=== PATIENT | male | born 1945 | race Caucasian/White ===

== ENCOUNTER 2017-03-29 11:24 | Inpatient (IN) | payer MEDICARE, OTHER ==
--- NOTE | ~2017-03-29 | DS ---
Discharge Summary [id number] [place]. [address] NAME: KENNETH GLYNN : 41 STATUS : DIS IN PAT#: [id number] AGE: 71 ADM/REG DATE : 03/29/17 MR#: [id number] REPORT SERV DATE: 04/03/17 DICTATED BY: JEREMY RILEY DATE: 04/02/17 REPORT STATUS : Draft TRANSCRIBED BY: MODL DATE: 04/02/17 ADMISSION DATE: 03/29/2017 DISCHARGE DATE: 04/02/2017 PROCEDURES DONE: 1. 03/29/2017 chest x-ray: Patchy bibasilar atelectasis versus early infiltrate, superimposed upon patient's chronic lung disease. 2. 03/30/2017 chest x-ray: Persistent pulmonary venous congestion, possibly due to diastolic dysfunction. 3. 03/31/2017 KUB: No acute intraabdominal process. 4. 03/31/2017 barium swallow study: Possible swallowing apraxia or apprehension slowing the process of bolus propulsion. Delayed, weak pharyngeal contraction. Deep penetration is remitting with chin tuck. No aspiration was witnessed. 5. 04/02/2017 chest x-ray, PA and lateral, partial interpretation: Much improved chest x- ray from previous. No signs of infiltrates appreciated. REASON FOR ADMISSION: Shortness of breath. HISTORY OF HOSPITAL STAY: A 71-year-old white male with past medical history of COPD with active smoking; history of aspiration pneumonia/dysphagia; RACQUEL, noncompliant with CPAP; coronary artery disease status post stent; hypothyroidism; chronic pain secondary to back and neck pain; medical noncompliance, presenting with shortness of breath. The patient was admitted for further evaluation of shortness of breath. The patient was noted to have shortness of breath secondary to COPD exacerbation due to noncompliance with nebulizers and oxygen. In addition, the patient was having [id number]-moepkfy hypoxic respiratory failure secondary to COPD exacerbation. The patient was treated with breathing treatments and IV steroids, which eventually resolved the patient's shortness of breath. Unfortunately, the patient also was being medical noncompliant with his opiate use. Apparently, the patient was using short acting Roxicodone 15 mg p.o. q.6 hours p.r.n. as prescribed, but unfortunately, instead of four times a day, he was taking six times a day. The patient was also found to have his Roxicodone pills in his hand and was noted to be hypotensive and bradycardic. The patient denies taking any of his own medications. Nursing staff had to take his medications and put it in with pharmacy for safe keeping. The patient admitted to taking more than his medications and family was made aware of the incident. The patient also went into opiate withdrawal during the hospital stay. The patient had to take OxyContin extended release 30 mg b.i.d. as a substitute for his Opana which help with the patient's withdrawal. Therefore, the patient is advised to withhold his extended release Opana 15 mg p.o. B12 and switch to Opana extended release 30 mg p.o. b.i.d. in order to correct the opiate withdrawal. In addition, the patient was advised to follow up with his Pain [facility] in order to make the adjustments needed to prevent future opioid withdrawal. The patient acknowledges that medical compliance is required at this point or else the patient will undergo another withdrawal and possibly shortness of breath. DISPOSITION: The patient is feeling fine, no complaints. ACTIVITY: As tolerated. Discharge Summary [address] [address] NAME: KENNETH GLYNN : 41 STATUS : DIS IN PAT#: [id number] AGE: 71 ADM/REG DATE : 03/29/17 MR#: [id number] REPORT SERV DATE: 04/03/17 DICTATED BY: JEREMY RILEY DATE: 04/02/17 REPORT STATUS : Draft TRANSCRIBED BY: KOKO DATE: 04/02/17 DIET: Cardiac. INSTRUCTIONS UPON DISCHARGE: 1. The patient will follow up with pain management to adjust his chronic pain. 2. The patient advised smoking cessation and advised to continue with nicotine patch 21 mg p.o. daily. MEDICATION UPON DISCHARGE: 1. Plavix 75 mg p.o. daily. 2. Zantac 150 mg p.o. b.i.d. 3. Imdur 30 mg p.o. b.i.d. 4. Synthroid 50 mcg p.o. daily. 5. Prinivil 2.5 mg daily. 6. Remeron 15 mg p.o. q.h.s. 7. Paxil 40 mg p.o. daily. 8. Lyrica 75 mg p.o. b.i.d. 9. Flomax 0.4 mg daily. 10.Roxicodone 15 mg p.o. q.6h. 11.Opana extended release 30 mg p.o. b.i.d., dispensed seven days. 12.Diazepam 10 mg p.o. daily p.r.n. 13.Anacin two tablets p.o. q.6h. p.r.n. 14.DuoNeb inhaled nebulizers four times a day p.r.n. 15.Ellipta one puff daily p.r.n. DIAGNOSES UPON DISCHARGE: 1. Shortness of breath secondary to acute exacerbation of chronic obstructive pulmonary disease versus early pneumonia, secondary to tobacco abuse. 2. Acute exacerbation of chronic obstructive pulmonary disease secondary to tobacco abuse. 3. Tobacco abuse. 4. Early pneumonia. 5. Opioid withdrawal secondary to medical noncompliance. 6. Chronic pain. 7. Coronary artery disease. 8. Hypothyroid. 9. Hypertension. LINA/KOKO Jeremy Riley MD / [id number] CC: Discharge Summary [address] [address] NAME: KENNETH GLYNN : 41 STATUS : DIS IN [facility]#: [id number] AGE: 71 ADM/REG DATE : 03/29/17 MR#: [id number] REPORT SERV DATE: 04/03/17 DICTATED BY: JEREMY RILEY DATE: 04/02/17 REPORT STATUS : Draft TRANSCRIBED BY: MODL DATE: 04/02/17 MD William Delgado M.D.
--- NOTE | ~2017-03-29 | HP ---
History And Physical [id number] [place]. [address] NAME: KENNETH GLYNN : 41 STATUS : ADM IN [facility]#: [id number] AGE: 71 ADM/REG DATE : 03/29/17 MR#: [id number] REPORT SERV DATE: 03/29/17 DICTATED BY: JIMY RAMON DATE: 03/29/17 REPORT STATUS : Draft TRANSCRIBED BY: MODFred DATE: 03/29/17 DATE OF ADMISSION: 03/29/2017 CHIEF COMPLAINT: Shortness of breath. HISTORY OF PRESENT ILLNESS: The patient is a 71-year-old white male with a longstanding history of COPD. He has also a history of aspiration pneumonia and dysphagia. He is supposed to be drinking thickened liquids and soft mechanical diet with chopped meats and gravy. He has followed none of those instructions. He is also supposed to be on home O2 at 2 L; however, he also does not wear his home O2. He continues to smoke daily. He does not use his nebulized therapy. He really does not follow any of the instructions that he was actually given at his last hospitalization. He still takes chronic pain medications on a regular basis and last time he was admitted, he actually had what sounds like an acute encephalopathy related to pain medications. He comes in today reporting a couple of weeks of fatigue, cough, shortness of breath. His states he has been mostly lying around in bed. He has continued to take his pain medications. He is sleepy today when I talk with him, but he easily arouses and is conversant. He has quite a rhonchorous cough. He states he hurts all over. PAST MEDICAL HISTORY: Positive for: 1. Severe COPD. Prescribed oxygen, but noncompliant. 2. Aspiration with aspiration pneumonia. 3. RACQUEL, intolerant to CPAP. 4. CAD with history of PTCI. 5. Hypothyroidism. 6. Chronic back pain and chronic neck pain, on chronic opiates. 7. Small-bowel obstruction. 8. Medical noncompliance. 9. Tobacco abuse. 10.History of dysphagia. SOCIAL HISTORY: He continues to smoke one to two packs a day and has for the last 50 years. His is at bedside. He is a nondrinker. FAMILY HISTORY: Negative for any premature coronary disease. ALLERGIES: NO KNOWN DRUG ALLERGIES. PAST SURGICAL HISTORY: He has had exploratory laparotomy with lysis of adhesions x2, an antrectomy, an appendectomy, left total hip arthroplasty, cholecystectomy, and right upper extremity incision and drainage for an abscess. HOME MEDICATIONS: Reviewed and attached. REVIEW OF SYSTEMS: Full 10-point review of systems obtained. Pertinent positives mentioned in the HPI. History And Physical [address] [place]. [address] NAME: KENNETH GLYNN : 41 STATUS : ADM IN [facility]#: [id number] AGE: 71 ADM/REG DATE : 03/29/17 MR#: [id number] REPORT SERV DATE: 03/29/17 DICTATED BY: JIMY RAMON DATE: 03/29/17 REPORT STATUS : Draft TRANSCRIBED BY: KOKO DATE: 03/29/17 PHYSICAL EXAMINATION: GENERAL: Thin, frail-appearing white male. HEENT: Normocephalic and atraumatic. Throat is clear. NECK: Supple. HEART: Regular rate and rhythm. LUNGS: He has diffuse wheezing throughout all lung cole. He also has a very rhonchorous cough with lots of secretions, that he has a very weak cough. ABDOMEN: Soft, nontender, nondistended. EXTREMITIES: Warm and dry. He has no peripheral edema. LABORATORY AND X-RAY DATA: Chemistry panel: Sodium is 135, potassium 4.4, chloride 97, CO2 of 32, BUN and creatinine 14 and 1.06, glucose 135. Troponin is 0.03. Mag is 2.0. Chest x ray shows patchy bibasilar atelectasis versus early infiltrate and chronic lung disease. ABG 7.34/40/86. Lactate is 1.3. White count is 26, H and H 16 and 48, platelets 301. Coags are normal. EKG shows sinus rhythm with a flipped T in lead III, which is new. ASSESSMENT AND PLAN: 1. Severe chronic obstructive pulmonary disease with noncompliance with nebs or oxygen, now with exacerbation and possible pneumonia. We will treat with DuoNeb, steroids and treat underlying possible pneumonia. 2. Hypoxemic respiratory failure, likely secondary to ongoing chronic obstructive pulmonary disease exacerbation plus or minus pneumonia. He is going to be covered with azithromycin and Rocephin. We will add Flagyl for aspiration. We will treat his underlying chronic obstructive pulmonary disease aggressively with Brovana Pulmicort, DuoNeb, steroids, and oxygen. 3. Continued tobacco abuse. Recommend cessation and place him on nicotine patch p.r.n. 4. Coronary artery disease with history of PTCI and no chest pain. Initial troponin is negative. We will recheck two more sets of enzymes. 5. Chronic pain, on chronic opiates. He is a bit sleepy. I do not think opiates are the best idea for this patient who has chronic ongoing hypoxemic respiratory failure and a history of sleep apnea. I would recommend stopping his narcotics and pursuing some alternatives such as nonnarcotic pain medication. He is a bit sleepy today, so I am going to hold his Opana and his oxycodone, although he does not have any evidence of hypercapnia on his gas. 6. Medical noncompliance. This seems to be his biggest shasha. He does not use his nebs. He does not use his oxygen. He continues to smoke. He really is not following any of the instructions he has been given by multiple doctors. He is not following aspiration precautions. He was supposed to have thickened liquids. I suspect his prognosis is fairly poor given his level of compliance and that he will likely succumb to his illness secondary to his continued noncompliance. 7. History of bowel obstruction in the past. 8. Deep venous thrombosis prophylaxis. Subcutaneous Lovenox. 9. Disposition, pending above. History And Physical [address] [address] NAME: KENNETH GLYNN : 41 STATUS : ADM IN [facility]#: [id number] AGE: 71 ADM/REG DATE : 03/29/17 MR#: [id number] REPORT SERV DATE: 03/29/17 DICTATED BY: JIMY RAMON DATE: 03/29/17 REPORT STATUS : Draft TRANSCRIBED BY: KOKO DATE: 03/29/17 TAVO/KOKO Jimy Ramon M.D. / [id number] CC: MD William Delgado M.D.
[2017-03-29 10:57] LABS: BASOPHILS 0.1 %; BASOPHILS ABSOLUTE 0.04 10/3/uL (0.0-0.16); EOSINOPHILS 0 %; IMMATURE GRANULOCYTES 0.3 %; LYMPHOCYTES 6.9 %; LYMPHOCYTES ABSOLUTE 1.85 10/3/uL (0.67-4.30); MEAN CORPUS HGB CONC 32.2 g/dL (32.0-36.0); MEAN CORPUSCULAR HEMOGLOB 29.3 pg (26.0-34.0); MEAN CORPUSCULAR VOLUME 91.2 fL (80-100); MEAN PLATELET VOLUME 9.3 fL (9.2-13.0); MONOCYTES 5.7 %; MONOCYTES ABSOLUTE 1.53 10/3/uL (0.21-1.20); NEUTROPHILS ABSOLUTE 23.28 10/3/uL (2.02-8.40); PLATELET COUNT 301 10/3/uL (150-400); RBC DISTRIBUTION WIDTH 17.1 % (12.0-16.0)
[2017-03-29 10:58] LABS: ER CBC TAT 0 Hrs 05 Mins; HEMATOCRIT 48.5 % (40.0-51.0); HEMOGLOBIN 15.6 g/dL (13.6-17.8); IMMATURE GRANULOCYTES ABSOLUTE 0.09 10/3/uL (0.0-0.11); MANUAL DIFF NO %; RED CELL COUNT 5.32 10/6/uL (4.7-6.1); WHITE BLOOD CELLS 26.8 10/3/uL (4.5-10.5)
[2017-03-29 11:04] LABS: INTERNATIONAL NORMAL RATI 1.1 UNITS (-); PARTIAL THROMBO TIME 31.5 SEC (22.5-37.2); PROTIME (NOT ORD) 14.1 SEC (12.0-14.5)
[2017-03-29 11:12] LABS: BUN (BLOOD UREA NITROGEN) 14 MG/DL (6-23); CALCIUM, SERUM 9.6 MG/DL (8.5-10.4); CHEST PAIN PROFILE TAT 0 Hrs 19 Mins; CHLORIDE, SERUM 97 MMOL/L (96-112); CO2 (CARBON DIOXIDE) 32 MMOL/L (24-34); CREATININE 1.06 MG/DL (0.70-1.30); GFR AFRICAN AMERICAN 80 ML/MIN (>=60); GFR NON AFRICAN AMERICAN 69 ML/MIN (>=60); GLUCOSE, SERUM 135 MG/DL (60-99); POTASSIUM, SERUM 4.4 MMOL/L (3.5-5.3); SODIUM, SERUM 135 MMOL/L (135-148); TROPONIN I 0.03 NG/ML (<0.05)
[~2017-03-29 11:24] MED LIST: *UNABLE1; ACCUNEB INH; ADVAIR250 INH; ALBUTEROL5 INH; ANACIN PO; ASA5GR PO; ASAB PO; ASABAYER PO; ATRONASAL3 NAS; ATROVENTUD INH; BREO ELLIPTA INH; CEFT5 PO; CIP5 PO; CLARIT10 PO; COMBIVENT INH; COMBIVENT RESPIM4 GM INH; CONSTULOSE PO; COREG12 PO; COREG3 PO; COREG6 PO; DOLOPHINE10 MG PO; DSS PO; EX-LAX PO; FLEXI JOIN1 PO; FLOMAX4 PO; FLONASE NAS; GOODY'S EX PO; HABIT21 TOP; HALF81 PO; HCTZ12.5 PO; IMDUR30 PO; INCRUSE ELLIPTA INH; INCRUSE INHALER INH; K-TABS10 MEQ PO; LEVOTHROID50 MCG PO; LEVOTHYROXIN100 MCG PO; LEVOTHYROXIN50 MCG PO; LEVOTHYROXIN88 MCG PO; LORTAB10 PO; LYRICA75 PO; MAG-SR535 MG PO; MEDROLPAK4 PO; MUCINEX600 MG PO; NEXIUM40 PO; NIACIN50T PO; NICODERM C21 MG/241 TOP; OPANA ER20 MG PO; OXYCOD PO; OXYCON20 PO; OXYCONTIN30 MG PO; P20 PO; PAX20 PO; PAXIL40 MG PO; PERCOCET1 TA2 PO; PLAVIX PO; PR25 PO; PRILO PO; PRIN10 PO; PRIN2.5 PO; PROAIR HFA INH; PROVENTSOL INH; REG PO; REM15 PO; ROXICODONE15 MG PO; ROXICODONE30 MG PO; SENNOSIDES PO; SENTAB PO; SEPTRA1 TAB PO; SEROQUEL50 MG PO; SPIRIVA INH; SYN.05 PO; T300 PO; THEO24300 PO; THYROID MED PO; VALIUM10 MG PO; VITAMIN B-225 MG PO; VITAMIN C100 MG PO; VITAMIN D31000 UNIT PO; ZANTAC 150 PO; ZITHROMAX500 MG PO; [UNRECOGNIZED DRUG - OTHER] TOP; [UNRECOGNIZED DRUG - OTHER] TOP
[2017-03-29 11:25] LABS: ANISOCYTOSIS 1+ (5-10/OIF) (0-5/OIF); BAND NEUTROPHILS 4 %; ER DIFF TAT 0 Hrs 32 Mins; LYMPHOCYTES 5 %; LYMPHOCYTES ABSOLUTE (CALC) 1.34 10/3/uL (0.67-4.30); MONOCYTES 7 %; MONOCYTES ABSOLUTE (CALC) 1.88 10/3/uL (0.21-1.20); NEUTROPHILS ABSOLUTE (CALC) 23.58 10/3/uL (2.02-8.40); PLATELET ESTIMATE ADQ (ADEQUATE); SEGMENTED NEUTROPHIL (0) 84 %; TOTAL NUCLEATED CELLS 100
[2017-03-29 11:55] LABS: LACTATE 1.3 MMOL/L (0.3-2.4)
[2017-03-29 12:07] LABS: ALLENS TEST Pos; BE (BASE EXCESS) -4.5 MEQ/L (0 +/- 2.5); CARBOXYHEMOGLOBIN 4.2 % (0-3); DEVICE NC; HCO3 (ACTUAL BICARBONATE) 20.9 MEQ/L (23-27); HEMOBLOGIN CONTENT 14.4 G/DL (14-18); INSTRUMENT SERIAL # 8087; METHEMOGLOBIN 0.3 % (0-3); O2 CONTENT 18.2 VOL% (18-24); PCO2 (CO2 TENSION) 40 MMHG (35-45); PO2 (O2 TENSION) 86 MMHG (79-93); SAMPLE Arterial; pH 7.34 (7.37-7.43)
[2017-03-29 13:17] LABS: PROCALCITONIN 0.32 ng/mL (<0.5)
[2017-03-29] MEDS ORDERED: ROXICODONE15 MG PO (13:34)
[2017-03-29] MEDS ORDERED: LYRICA75 PO (13:34)
[2017-03-29] MEDS ORDERED: FLOMAX4 PO (13:34)
[2017-03-29] MEDS ORDERED: VALIUM10 MG PO (13:35)
[2017-03-29] MEDS ORDERED: OPANA ER15 MG PO (13:35)
[2017-03-29] MEDS ORDERED: REM15 PO (13:36)
[2017-03-29] MEDS ORDERED: ZANTAC 150 PO (13:37)
[2017-03-29] MEDS ORDERED: IMDUR30 PO (13:37)
[2017-03-29] MEDS ORDERED: SYN.05 PO (13:39)
[2017-03-29] MEDS ORDERED: ANACIN PO (13:39)
[2017-03-29] MEDS ORDERED: PRIN2.5 PO (13:40)
[2017-03-29] MEDS ORDERED: PAXIL40 MG PO (13:42)
[2017-03-29] MEDS ORDERED: DUONEB INH (13:42)
[2017-03-29] MEDS ORDERED: PLAVIX PO (13:42)
[2017-03-29] MEDS ORDERED: INCRUSE ELLI62.5 MCG INH (13:43)
[2017-03-29 18:22] LABS: INFLUENZA A SCREEN NEGATIVE (NEGATIVE); INFLUENZA B SCREEN NEGATIVE (NEGATIVE)
[2017-03-29 21:17] LABS: ALLENS TEST Pos; BE (BASE EXCESS) 2.7 MEQ/L (0 +/- 2.5); CARBOXYHEMOGLOBIN 1.4 % (0-3); DEVICE NC; HCO3 (ACTUAL BICARBONATE) 28.7 MEQ/L (23-27); INSTRUMENT SERIAL # 8083; METHEMOGLOBIN 0.3 % (0-3); OPERATOR ID 23712; PCO2 (CO2 TENSION) 50 MMHG (35-45); PO2 (O2 TENSION) 69 MMHG (79-93); SAMPLE Arterial; pH 7.38 (7.37-7.43)
[2017-03-30 01:59] LABS: ALLENS TEST Pos; BE (BASE EXCESS) 1.3 MEQ/L (0 +/- 2.5); CARBOXYHEMOGLOBIN 0.7 % (0-3); HCO3 (ACTUAL BICARBONATE) 26.5 MEQ/L (23-27); HEMOBLOGIN CONTENT 13.6 G/DL (14-18); INSTRUMENT SERIAL # 35151; METHEMOGLOBIN 0.3 % (0-3); O2 CONTENT 18.2 VOL% (18-24); OPERATOR ID 35390; PCO2 (CO2 TENSION) 44 MMHG (35-45); PO2 (O2 TENSION) 85 MMHG (79-93); SAMPLE Arterial
[2017-03-30 03:14] LABS: BASOPHILS 0.1 %; BASOPHILS ABSOLUTE 0.01 10/3/uL (0.0-0.16); EOSINOPHILS 0 %; HEMOGLOBIN 13.2 g/dL (13.6-17.8); IMMATURE GRANULOCYTES 0.3 %; IMMATURE GRANULOCYTES ABSOLUTE 0.05 10/3/uL (0.0-0.11); LYMPHOCYTES 4.3 %; LYMPHOCYTES ABSOLUTE 0.81 10/3/uL (0.67-4.30); MEAN CORPUS HGB CONC 31.2 g/dL (32.0-36.0); MEAN CORPUSCULAR HEMOGLOB 28.1 pg (26.0-34.0); MEAN PLATELET VOLUME 9.8 fL (9.2-13.0); MONOCYTES 2.6 %; MONOCYTES ABSOLUTE 0.49 10/3/uL (0.21-1.20); NEUTROPHILS 92.7 %; NEUTROPHILS ABSOLUTE 17.59 10/3/uL (2.02-8.40); PLATELET COUNT 298 10/3/uL (150-400); RBC DISTRIBUTION WIDTH 17.2 % (12.0-16.0)
[2017-03-30 03:18] LABS: HEMATOCRIT 42.3 % (40.0-51.0); MANUAL DIFF NO %
[2017-03-30 03:30] LABS: CALCIUM, SERUM 8.9 MG/DL (8.5-10.4); CHLORIDE, SERUM 106 MMOL/L (96-112); CO2 (CARBON DIOXIDE) 28 MMOL/L (24-34); CREATININE 0.95 MG/DL (0.70-1.30); GFR AFRICAN AMERICAN 92 ML/MIN (>=60); GFR NON AFRICAN AMERICAN 79 ML/MIN (>=60); GLUCOSE, SERUM 158 MG/DL (60-99); POTASSIUM, SERUM 4.5 MMOL/L (3.5-5.3); TROPONIN I <0.02 NG/ML (<0.05)
[2017-03-30 03:32] LABS: BUN (BLOOD UREA NITROGEN) 21 MG/DL (6-23); SODIUM, SERUM 142 MMOL/L (135-148)
[2017-03-30 04:59] LABS: A/G RATIO 0.5 (0.7-1.9); ALBUMIN 2.3 G/DL (3.5-5.0); ALKALINE PHOSPHATASE 82 U/L (45-117); BUN (BLOOD UREA NITROGEN) 20 MG/DL (6-23); CALCIUM, SERUM 8.8 MG/DL (8.5-10.4); CHLORIDE, SERUM 106 MMOL/L (96-112); CO2 (CARBON DIOXIDE) 26 MMOL/L (24-34); CREATININE 0.76 MG/DL (0.70-1.30); GFR AFRICAN AMERICAN 105 ML/MIN (>=60); GFR NON AFRICAN AMERICAN 91 ML/MIN (>=60); GLOBULIN 4.4 G/DL (2.5-4.1); GLUCOSE, SERUM 158 MG/DL (60-99); POTASSIUM, SERUM 4.5 MMOL/L (3.5-5.3); SGOT(AST) 8 U/L (5-40); SGPT(ALT) 9 U/L (5-65); SODIUM, SERUM 140 MMOL/L (135-148); TOTAL PROTEIN 6.7 G/DL (6.0-8.5)
[2017-03-30 05:01] LABS: PHOSPHORUS, SERUM 1.7 MG/DL (2.5-4.5); TOTAL BILIRUBIN 0.2 MG/DL (0-1.2)
[2017-03-30 05:37] LABS: PROCALCITONIN 0.12 ng/mL (<0.5)
[2017-03-31 05:04] LABS: HEMATOCRIT 43.6 % (40.0-51.0); HEMOGLOBIN 14.3 g/dL (13.6-17.8); MEAN CORPUSCULAR HEMOGLOB 29.1 pg (26.0-34.0); MEAN CORPUSCULAR VOLUME 88.6 fL (80-100); MEAN PLATELET VOLUME 9.4 fL (9.2-13.0); PLATELET COUNT 372 10/3/uL (150-400); RBC DISTRIBUTION WIDTH 17.1 % (12.0-16.0); RED CELL COUNT 4.92 10/6/uL (4.7-6.1)
[2017-03-31 05:09] LABS: MEAN CORPUS HGB CONC 32.8 g/dL (32.0-36.0); WHITE BLOOD CELLS 30.7 10/3/uL (4.5-10.5)
[2017-03-31 05:10] LABS: MANUAL DIFF YES %
[2017-03-31 05:41] LABS: A/G RATIO 0.6 (0.7-1.9); ALBUMIN 2.6 G/DL (3.5-5.0); CALCIUM, SERUM 9.2 MG/DL (8.5-10.4); CHLORIDE, SERUM 106 MMOL/L (96-112); CO2 (CARBON DIOXIDE) 29 MMOL/L (24-34); CREATININE 0.87 MG/DL (0.70-1.30); GFR AFRICAN AMERICAN 99 ML/MIN (>=60); GFR NON AFRICAN AMERICAN 86 ML/MIN (>=60); GLOBULIN 4.6 G/DL (2.5-4.1); GLUCOSE, SERUM 143 MG/DL (60-99); PHOSPHORUS, SERUM 1.7 MG/DL (2.5-4.5); POTASSIUM, SERUM 4.2 MMOL/L (3.5-5.3); SGOT(AST) 6 U/L (5-40); SGPT(ALT) 9 U/L (5-65); SODIUM, SERUM 142 MMOL/L (135-148); TOTAL BILIRUBIN 0.2 MG/DL (0-1.2); TOTAL PROTEIN 7.2 G/DL (6.0-8.5)
[2017-03-31 05:42] LABS: ALKALINE PHOSPHATASE 119 U/L (45-117); BUN (BLOOD UREA NITROGEN) 24 MG/DL (6-23)
[2017-03-31 06:35] LABS: BAND NEUTROPHILS 10 %; LYMPHOCYTES 2 %; LYMPHOCYTES ABSOLUTE (CALC) 0.61 10/3/uL (0.67-4.30); MONOCYTES 4 %; MONOCYTES ABSOLUTE (CALC) 1.23 10/3/uL (0.21-1.20); NEUTROPHILS ABSOLUTE (CALC) 28.86 10/3/uL (2.02-8.40); PLATELET ESTIMATE ADQ (ADEQUATE); RBC MORPHOLOGY NORM (NORMAL); SEGMENTED NEUTROPHIL (0) 84 %; TOTAL NUCLEATED CELLS 100
[2017-04-01 04:31] LABS: HEMATOCRIT 41.2 % (40.0-51.0); HEMOGLOBIN 12.8 g/dL (13.6-17.8); MEAN CORPUSCULAR HEMOGLOB 28.5 pg (26.0-34.0); MEAN PLATELET VOLUME 9.2 fL (9.2-13.0); PLATELET COUNT 360 10/3/uL (150-400); RBC DISTRIBUTION WIDTH 17.5 % (12.0-16.0); RED CELL COUNT 4.49 10/6/uL (4.7-6.1); WHITE BLOOD CELLS 24.4 10/3/uL (4.5-10.5)
[2017-04-01 04:32] LABS: MANUAL DIFF YES %; MEAN CORPUS HGB CONC 31.1 g/dL (32.0-36.0); MEAN CORPUSCULAR VOLUME 91.8 fL (80-100)
[2017-04-01 04:58] LABS: A/G RATIO 0.6 (0.7-1.9); ALBUMIN 2.4 G/DL (3.5-5.0); ALKALINE PHOSPHATASE 94 U/L (45-117); BUN (BLOOD UREA NITROGEN) 21 MG/DL (6-23); CALCIUM, SERUM 8.8 MG/DL (8.5-10.4); CHLORIDE, SERUM 109 MMOL/L (96-112); CO2 (CARBON DIOXIDE) 32 MMOL/L (24-34); CREATININE 0.83 MG/DL (0.70-1.30); GFR AFRICAN AMERICAN 101 ML/MIN (>=60); GFR NON AFRICAN AMERICAN 87 ML/MIN (>=60); GLOBULIN 4.1 G/DL (2.5-4.1); GLUCOSE, SERUM 139 MG/DL (60-99); PHOSPHORUS, SERUM 2.8 MG/DL (2.5-4.5); POTASSIUM, SERUM 4.8 MMOL/L (3.5-5.3); SGOT(AST) 5 U/L (5-40); SGPT(ALT) 8 U/L (5-65); SODIUM, SERUM 145 MMOL/L (135-148); TOTAL BILIRUBIN 0.2 MG/DL (0-1.2); TOTAL PROTEIN 6.5 G/DL (6.0-8.5)
[2017-04-01 05:49] LABS: BAND NEUTROPHILS 3 %; LYMPHOCYTES 3 %; LYMPHOCYTES ABSOLUTE (CALC) 0.73 10/3/uL (0.67-4.30); MONOCYTES 1 %; MONOCYTES ABSOLUTE (CALC) 0.24 10/3/uL (0.21-1.20); NEUTROPHILS ABSOLUTE (CALC) 23.42 10/3/uL (2.02-8.40); SEGMENTED NEUTROPHIL (0) 93 %; TOTAL NUCLEATED CELLS 100
[2017-04-01 05:50] LABS: PLATELET ESTIMATE ADQ (ADEQUATE); RBC MORPHOLOGY NORM (NORMAL)
[2017-04-02 04:37] LABS: BASOPHILS 0.1 %; BASOPHILS ABSOLUTE 0.01 10/3/uL (0.0-0.16); EOSINOPHILS 0.1 %; EOSINOPHILS ABSOLUTE 0.01 10/3/uL (0.0-0.53); HEMATOCRIT 43.5 % (40.0-51.0); HEMOGLOBIN 13.5 g/dL (13.6-17.8); IMMATURE GRANULOCYTES 0.4 %; IMMATURE GRANULOCYTES ABSOLUTE 0.08 10/3/uL (0.0-0.11); LYMPHOCYTES 5.7 %; LYMPHOCYTES ABSOLUTE 1.04 10/3/uL (0.67-4.30); MEAN CORPUSCULAR HEMOGLOB 28.1 pg (26.0-34.0); MEAN CORPUSCULAR VOLUME 90.6 fL (80-100); MEAN PLATELET VOLUME 9.4 fL (9.2-13.0); MONOCYTES 4.8 %; MONOCYTES ABSOLUTE 0.88 10/3/uL (0.21-1.20); NEUTROPHILS 88.9 %; NEUTROPHILS ABSOLUTE 16.36 10/3/uL (2.02-8.40); PLATELET COUNT 380 10/3/uL (150-400); RBC DISTRIBUTION WIDTH 17.1 % (12.0-16.0); WHITE BLOOD CELLS 18.4 10/3/uL (4.5-10.5)
[2017-04-02 04:39] LABS: MANUAL DIFF NO %
[2017-04-02 04:53] LABS: A/G RATIO 0.6 (0.7-1.9); ALBUMIN 2.4 G/DL (3.5-5.0); ALKALINE PHOSPHATASE 87 U/L (45-117); CALCIUM, SERUM 8.8 MG/DL (8.5-10.4); CHLORIDE, SERUM 105 MMOL/L (96-112); CO2 (CARBON DIOXIDE) 34 MMOL/L (24-34); CREATININE 0.81 MG/DL (0.70-1.30); GFR AFRICAN AMERICAN 102 ML/MIN (>=60); GFR NON AFRICAN AMERICAN 88 ML/MIN (>=60); GLOBULIN 3.9 G/DL (2.5-4.1); GLUCOSE, SERUM 142 MG/DL (60-99); PHOSPHORUS, SERUM 2.7 MG/DL (2.5-4.5); POTASSIUM, SERUM 4.8 MMOL/L (3.5-5.3); SGOT(AST) 6 U/L (5-40); SGPT(ALT) 7 U/L (5-65); SODIUM, SERUM 142 MMOL/L (135-148); TOTAL BILIRUBIN 0.2 MG/DL (0-1.2); TOTAL PROTEIN 6.3 G/DL (6.0-8.5)
[2017-04-02 04:58] LABS: BUN (BLOOD UREA NITROGEN) 17 MG/DL (6-23)
[2017-04-02] MEDS ORDERED: HABIT21 (11:08)
[2017-04-02] MEDS ORDERED: OPANA ER30 MG PO (11:10)
== END 2017-04-02 20:43 | disposition home health service (06) | DRG 189 ==
LOC: ER 11:24 → 7NO 13:23
PROVIDERS: Hospitalist; Internal Medicine; Nurse Practitioner
DX: J96.21 Acute and chronic respiratory failure with hypoxia (principal); J18.9 Pneumonia, unspecified organism; J44.0 Chronic obstructive pulmonary disease with (acute) lower respiratory infection; J44.1 Chronic obstructive pulmonary disease with (acute) exacerbation; R13.12 Dysphagia, oropharyngeal phase; F11.23 Opioid dependence with withdrawal; T40.2X1A Poisoning by other opioids, accidental (unintentional), initial encounter; F17.210 Nicotine dependence, cigarettes, uncomplicated; Z91.19 Patient's noncompliance with other medical treatment and regimen; Z87.01 Personal history of pneumonia (recurrent); Y92.230 Patient room in hospital as the place of occurrence of the external cause; I95.2 Hypotension due to drugs; R00.1 Bradycardia, unspecified; G89.29 Other chronic pain; E03.9 Hypothyroidism, unspecified; I10 Essential (primary) hypertension; G47.33 Obstructive sleep apnea (adult) (pediatric); M54.9 Dorsalgia, unspecified; I25.10 Atherosclerotic heart disease of native coronary artery without angina pectoris; M54.2 Cervicalgia; Z91.14 Patient's other noncompliance with medication regimen; Z79.02 Long term (current) use of antithrombotics/antiplatelets; Z95.5 Presence of coronary angioplasty implant and graft; Z96.642 Presence of left artificial hip joint; Z90.49 Acquired absence of other specified parts of digestive tract
CPT/HCPCS: 36600; 71010; 71020; 74000; 74230; 80048; 80053; 80069; 81001; 82805; 82962; 83605; 83735; 83880; 84100; 84145; 84484; 85025; 85610; 85730; 87040; 87449; 87804; 92610-GN; 92611-GN; 93005; 94640; 94660; 96374; 99285; A9270-GY; G8996-CJ-GN; G8996-CK-GN; G8997-CJ-GN; G8998-CJ-GN; J0456; J2405; J2550; J2920; J2930